=== PATIENT | male | born 1990 ===

== ENCOUNTER → 2019-04-14 | Outpatient (CLI) | payer BC | LOC: ZCOL.LAB 17:14 | DX: Z01.812 Encounter for preprocedural laboratory examination (principal); Z86.14 Personal history of Methicillin resistant Staphylococcus aureus infection ==

== ENCOUNTER 2019-05-02 05:52 | Day surgery (SDC) | payer BC ==
[~2019-05-02] VITALS: Ht 182.9 cm; Wt 71.8 kg
[2019-05-02 06:37] VITALS: BP 126/79; PULSE 95; TEMP 97.4
[2019-05-02 08:37] VITALS: TEMP 98.2
[2019-05-02 08:50] VITALS: BP 132/81; PULSE 83
--- NOTE | 2019-05-02 08:50 | NUR ---
Patient returns to room 7 per cart from PACU accompanied by Gulshan RN and patient is awake and alert. Denies pain or nausea when asked. Foot cart elevated and ice pack on the right knee. IV fluids infusing and site is free of redness. Raman wrap dressing dry on the right knee. Right foot warm to touch and nailbeds pink. Siderails up x2 and call light in reach. Friend in room.
[2019-05-02 09:05] VITALS: BP 129/79; PULSE 81
--- NOTE | 2019-05-02 09:05 | NUR ---
Assisted up to the bathroom with use of crutches. Gait steady and denies increasing pain.
[2019-05-02 09:20] VITALS: BP 126/75; PULSE 92
--- NOTE | 2019-05-02 09:20 | NUR ---
Eating toast and drinking juice. Rates pain at 3-4/10.
--- NOTE | 2019-05-02 09:21 | NUR ---
Medicated with Percocet 5mg one tab for right knee discomfort and for ride home.
[2019-05-02] MEDS ORDERED: PERCOCET 325 MG1 TA2 PO (09:23)
[2019-05-02] MEDS ORDERED: ASPIRIN 32325 MG/TAB PO (09:24)
[2019-05-02] MEDS ORDERED: MOBIC15 MG PO (09:25)
[2019-05-02] MEDS ORDERED: COLACE 100100 MG/CAP PO (09:26)
[2019-05-02] MEDS ORDERED: ZOFRAN 4MG T4 MG/TAB PO (09:27)
[2019-05-02 09:35] VITALS: BP 129/75; PULSE 85
--- NOTE | 2019-05-02 09:35 | NUR ---
Room air sats 98%. Tolerated toast and juice. Raman wrap dressing dry.
--- NOTE | 2019-05-02 09:40 | NUR ---
Given dismissal instructions and voices understanding of these. Provided scripts for Aspirin, Colace, Zofran, Mobic, and Percocet. Provided script for physical therapy. IV discontinued and site is free of redness. Patient is able to dress self.
--- NOTE | 2019-05-02 09:51 | NUR ---
Patient dismissed to home per private vehicle driven by friend and taken to the emergency room per wheelchair and assited into car with dismissal instructions in hand.
== END 2019-05-02 09:51 | disposition home or self-care (01) ==
LOC: SDCO 05:52
DX: M23.221 Derangement of posterior horn of medial meniscus due to old tear or injury, right knee (principal); F17.210 Nicotine dependence, cigarettes, uncomplicated
CPT/HCPCS: J0690; J1100; J1885; J2175; J2405; J2704; J3010; J7120